=== PATIENT | male | born 1965 | race African-American/Black ===

== ENCOUNTER 2023-01-06 06:17 | Day surgery (SDC) | payer OTHER ==
[2023-01-04 15:00] VITALS: BMI 39.1
[~2023-01-06 06:17] MED LIST: EPINEPHrine 0.3 MG in Ophthalmic Irrigation Solution 500 ML IRR SCH
[2023-01-06] MEDS ORDERED: Midazolam HCl 2 mg/2 ml Vial ONE (06:32)
[2023-01-06] MEDS ORDERED: fentaNYL PF 100 MCG/2 ML SYRINGE ONE (06:32)
[2023-01-06] MEDS ORDERED: Cyclopentolate 1% Opth Drop 2 ML BOT ONE (07:07)
[2023-01-06] MEDS ORDERED: Phenylephrine 2.5% Ophth Soln 5 ML BOT ONE (07:07)
[2023-01-06] MEDS ORDERED: Famotidine/PF 20 mg/2ml Vial ONE (07:41)
[2023-01-06] MEDS ORDERED: CEFAZOLIN 1 GM VIAL ONE (07:43)
[2023-01-06] MEDS ORDERED: PHENYLEPHRINE-NS 100 MCG/ML 10 ML SYRINGE ONE (07:43)
[2023-01-06] MEDS ORDERED: Maxitrol 0.1% Opth Oint 3.5 GM TUBE ONE (07:43)
[2023-01-06] MEDS ORDERED: Ondansetron PF 4 MG/2 ML Vial ONE (07:43)
[2023-01-06] MEDS ORDERED: Lidocaine 1% PF 5 ML VIAL ONE (07:43)
[2023-01-06] MEDS ORDERED: PROPOFOL 200 MG/20 ML VIAL ONE (07:43)
[2023-01-06] MEDS ORDERED: Metoclopramide HCl 10 MG/2 ML VIAL ONE (07:43)
[2023-01-06] MEDS ORDERED: ePHEDrine 50 MG/ML VIAL ONE (07:43)
[2023-01-06] MEDS ORDERED: Bupivacaine 0.75% 10 ML VIAL ONE (07:43)
[2023-01-06] MEDS ORDERED: Lidocaine 4% PF 5 ML AMP ONE (07:43)
[2023-01-06] MEDS ORDERED: Glycopyrrolate 0.2 MG/ML 5 ML SYRINGE ONE (07:43)
[2023-01-06] MEDS ORDERED: Labetalol HCl 100 MG/20 ML VIAL ONE (10:52)
== END 2023-01-06 11:20 | disposition home or self-care (01) ==
LOC: SDC 06:17
PROVIDERS: ATTEND Ophthalmology Retina Specialist
PROC: 08PJ3JZ Removal of Synthetic Substitute from Right Lens, Percutaneous Approach (ICD-10-PCS; principal; 2023-01-06)
PROC: 08T43ZZ Resection of Right Vitreous, Percutaneous Approach (ICD-10-PCS; principal; 2023-01-06)
PROC: 08RJ3JZ Replacement of Right Lens with Synthetic Substitute, Percutaneous Approach (ICD-10-PCS; principal; 2023-01-06)
DX: H27.131 Posterior dislocation of lens, right eye (principal); H27.01 Aphakia, right eye; Z91.048 Other nonmedicinal substance allergy status
CPT/HCPCS: J0171; J0690; J2250; J2405; J2704; J2765; J3490; S0028; V2632